=== PATIENT | female | born 1970 | race Hispanic/Latino ===

== ENCOUNTER 2016-09-27 17:57 | Emergency (ER) | payer OTHER, MEDICARE ==
[2016-09-27 18:18] VITALS: RESP 16; BMI 37.8
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
[2016-09-27 20:18] VITALS: BP 108/78; PULSE 82; TEMP 98; O2SAT 99
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
== END 2016-09-27 20:20 | disposition home or self-care (01) ==
LOC: ED 17:57
DX: M54.9 Dorsalgia, unspecified (principal); M25.512 Pain in left shoulder; M25.511 Pain in right shoulder; V49.49XA Driver injured in collision with other motor vehicles in traffic accident, initial encounter; Y92.410 Unspecified street and highway as the place of occurrence of the external cause; Z98.890 Other specified postprocedural states
CPT/HCPCS: 72110; 73030; 96372; 99285; J1885